=== PATIENT | male | born 1960 ===

== ENCOUNTER → 2020-02-20 11:59 | Outpatient (BNVA) | payer OTHER, SELFPAY | PROVIDERS: Family Provider Nurse Practitioner Family; PCP Nurse Practitioner Family; Visit Provider Nurse Practitioner Family | DX: N41.9 Inflammatory disease of prostate, unspecified (principal) | CPT/HCPCS: 81003; 87086 ==

== ENCOUNTER → 2020-03-13 13:14 | Outpatient (BNVA) | payer OTHER, SELFPAY | PROVIDERS: Family Provider Nurse Practitioner Family; PCP Nurse Practitioner Family; Visit Provider Urology | DX: N41.9 Inflammatory disease of prostate, unspecified (principal); N40.1 Benign prostatic hyperplasia with lower urinary tract symptoms | CPT/HCPCS: 81003 ==

== ENCOUNTER → 2020-06-13 07:54 | Outpatient (BNVA) | payer OTHER, SELFPAY | PROVIDERS: Family Provider Nurse Practitioner Family; PCP Nurse Practitioner Family; Visit Provider Urology | DX: N40.1 Benign prostatic hyperplasia with lower urinary tract symptoms (principal); N41.9 Inflammatory disease of prostate, unspecified; N41.1 Chronic prostatitis; N52.1 Erectile dysfunction due to diseases classified elsewhere; Z12.5 Encounter for screening for malignant neoplasm of prostate | CPT/HCPCS: 81003; G0103 ==

== ENCOUNTER 2020-12-18 16:47 | Outpatient (CLI) | payer BC, SELFPAY ==
--- NOTE | 2020-12-18 16:56 | XR_ITS ---
WS: [id number] XR KUB [id number] REASON FOR EXAM: RIGHT FLANK PAIN FINDINGS: 5 mm calculus in the lower right kidney and 7 mm calculus lower left kidney. No definite calculus seema ng the course of the abdominal portion of the ureters. Multiple calcifications within the pelvis which appear vascular. No definite distal ureteral calculus or bladder calculus. No other significant abdominal or pelvic abnormality. XR/XR KUB [id number] IMPRESSION: Bilaterally renal calculi as above.
== END 2020-12-18 16:48 | disposition home or self-care (01) ==
LOC: RAD 16:51
PROVIDERS: PCP Nurse Practitioner Family; Visit Provider Nurse Practitioner Family
DX: R10.9 Unspecified abdominal pain (principal); N20.0 Calculus of kidney
CPT/HCPCS: 74018; 81003